=== PATIENT | male | born 1945 | race Caucasian/White ===

== ENCOUNTER → 2019-05-30 | Outpatient (CLI) | payer OTHER | END | disposition home or self-care (01) | LOC: CFH 08:08 | PROVIDERS: ATTEND Internal Medicine Cardiovascular Disease | DX: I25.10 Atherosclerotic heart disease of native coronary artery without angina pectoris (principal); I25.9 Chronic ischemic heart disease, unspecified | CPT/HCPCS: 78452; 93017; A9502 ==

== ENCOUNTER → 2019-08-04 | Outpatient (CLI) | payer OTHER ==
[~2019-08-04] MED LIST: ASPI-496 PO; ATOR80TA PO; CHOL40002 PO; GABA300C PO; LISI5TAB7 PO; METF500T17 PO; METO-264 PO; METO25TA35 PO; OMEG1CAP6 PO; VITA1TAB19 PO
== END | disposition home or self-care (01) ==
LOC: CFH 11:51
PROVIDERS: ATTEND Neurological Surgery
DX: M48.07 Spinal stenosis, lumbosacral region (principal); M43.16 Spondylolisthesis, lumbar region; M41.86 Other forms of scoliosis, lumbar region; M89.38 Hypertrophy of bone, other site
CPT/HCPCS: 72110; 72148

== ENCOUNTER 2019-11-21 23:25 | Emergency (ER) | payer MEDICARE, OTHER ==
[~2019-11-21] VITALS: Ht 188 cm; Wt 98.6 kg
--- NOTE | 2019-11-22 00:20 | NUR ---
BENAVIDEZ CATHETER PLACED, STANDARD BENAVIDEZ TIP ATTEMPTED, UNABLE TO ADVANCE. CAUDE TIP USED AND ADVANCED. APPX 1600ML URINE IN DRAIN BAG. PT REPORTS RELIEF FROM PAIN AT THIS TIME. URINE CONTINUES TO DRAIN INTO DRAINAGE BAG.
[2019-11-22 00:28] LABS: MICROSCOPIC AUTO
[2019-11-22 00:32] LABS: BASOPHILS # (AUTO) 0.02 x10^3/uL (0-0.1); BASOPHILS % (AUTO) 0 % (0-1); EOSINOPHILS # (AUTO) 0.19 x10^3/uL (0-0.4); EOSINOPHILS % (AUTO) 2 % (1-7); LYMPHOCYTES # (AUTO) 1.51 x10^3/uL (1-3.4); LYMPHOCYTES % (AUTO) 12 % (22-44); MD NO; MEAN CORPUSCULAR HEMOGLOBIN 30.3 pg (27.5-34.5); MEAN CORPUSCULAR HGB CONC 33.3 g/dL (33.2-36.2); MEAN PLATELET VOLUME 9.6 fL (7.4-10.4); MONOCYTES % (AUTO) 5 % (2-9); NEUTROPHILS # (AUTO) 9.88 x10^3/uL (1.8-6.8); NEUTROPHILS % (AUTO) 81 % (42-75); PLATELET COUNT 170 x10^3/uL (130-400); RED BLOOD COUNT 4.27 x10^6/uL (4.38-5.82); RED CELL DISTRIBUTION WIDTH 12.9 % (9.4-14.8)
[2019-11-22 00:41] LABS: ALBUMIN 3.8 g/dL (3.4-5.0); ANION GAP 9 mmol/L (5-15); CALCIUM 9.2 mg/dL (8.5-10.1); CHLORIDE 109 mmol/L (98-107); CREATININE 1.44 mg/dL (0.7-1.3)
[2019-11-22 02:10] VITALS: BP 122/65
== END 2019-11-22 02:13 | disposition home or self-care (01) ==
LOC: ED 11-22 00:48
DX: N40.1 Benign prostatic hyperplasia with lower urinary tract symptoms (principal); R33.8 Other retention of urine; R19.7 Diarrhea, unspecified; R10.9 Unspecified abdominal pain; R11.0 Nausea; I10 Essential (primary) hypertension; E11.9 Type 2 diabetes mellitus without complications
CPT/HCPCS: 36415; 51702; 80048; 81001; 82040; 85025; 99284

== ENCOUNTER 2019-11-30 11:25 | Outpatient (CLI) | payer OTHER | END 2019-11-30 23:59 | disposition home or self-care (01) | LOC: RAD 11:25 | PROVIDERS: ATTEND Family Medicine | DX: Z02.9 Encounter for administrative examinations, unspecified (principal) ==

== ENCOUNTER → 2020-01-05 | Outpatient (CLI) | payer OTHER ==
[~2020-01-05] MED LIST changes: +TAMS-11 PO
== END | disposition home or self-care (01) ==
LOC: STAR 13:22
PROVIDERS: ATTEND Urology
DX: Z01.818 Encounter for other preprocedural examination (principal); N40.1 Benign prostatic hyperplasia with lower urinary tract symptoms; I45.89 Other specified conduction disorders
CPT/HCPCS: 93005

== ENCOUNTER 2020-01-11 07:38 | Observation (INO) | payer OTHER ==
[~2020-01-11] VITALS: Ht 188 cm; Wt 98.9 kg
[2020-01-11] MEDS ORDERED: LACTATED RINGERS 1,000 ML IV SCH (08:15)
[2020-01-11 08:20] VITALS: BP 123/78
[2020-01-11] MEDS ORDERED: ACET-1600 PO (08:23)
[2020-01-11] MEDS ORDERED: CHLORHEXIDINE 15 ML UDC MM ONE (08:30)
[2020-01-11] MEDS ORDERED: FENTANYL PF 250 MCG/5ML ONE (09:17)
[2020-01-11] MEDS ORDERED: DEXAMETHASONE 4 MG/ML, 1ML ONE (09:33)
[2020-01-11] MEDS ORDERED: SUCCINYLCHOLINE 20 MG/ML, 10ML ONE (09:33)
[2020-01-11] MEDS ORDERED: CEFAZOLIN 1,000 MG ONE (09:33)
[2020-01-11] MEDS ORDERED: ONDANSETRON 2MG/ML, 2ML ONE (09:33)
[2020-01-11] MEDS ORDERED: PROPOFOL 10 MG/ML, 20ML ONE (09:33)
[2020-01-11] MEDS ORDERED: HYDROmorphone 2 MG/ML, 1ML IVPush PRN (10:00)
[2020-01-11] MEDS ORDERED: PROMETHAZINE 25 MG/ML, 1ML IV PRN (10:00)
[2020-01-11] MEDS ORDERED: MEPERIDINE/PF 25MG/0.5ML IVPush PRN (10:00)
[2020-01-11] MEDS ORDERED: KETOROLAC 30 MG/1 ML IV PRN (10:00)
[2020-01-11] MEDS ORDERED: OXYcodone 5 MG/5 ML ORAL.SOL UDC PO PRN (10:00)
[2020-01-11] MEDS ORDERED: ALBUTEROL SULFATE 2.5 MG/3 ML NPPB PRN (10:00)
[2020-01-11] MEDS ORDERED: ACETAMINOPHEN 325 MG TABLET PO PRN (10:00)
[2020-01-11] MEDS ORDERED: LABETALOL 5MG/ML, 20ML IV PRN (10:00)
[2020-01-11] MEDS ORDERED: hydrALAzine 20 MG/ML, 1ML IV PRN (10:00)
[2020-01-11] MEDS ORDERED: DIAZEPAM 5 MG/ML, 2ML IVPush PRN (10:00)
[2020-01-11] MEDS ORDERED: ONDANSETRON 2MG/ML, 2ML IV PRN (11:00)
[2020-01-11] MEDS ORDERED: FENTANYL PF 100 MCG/2ML ONE (11:20)
[2020-01-11] MEDS ORDERED: ACETAMINOPHEN 650 MG/20.3 ML UDC ONE (11:20)
[2020-01-11] MEDS ORDERED: OXYcodone 5 MG/5 ML ORAL.SOL UDC ONE (11:20)
[2020-01-11] MEDS: FENTANYL PF 100 MCG/2ML IV PRN ×2 (11:35→11:40)
[2020-01-11 16:58] VITALS: BP 137/86
[2020-01-11] MEDS ORDERED: ACETAMINOPHEN 500 MG TABLET PO PRN (18:00)
[2020-01-11 18:47] VITALS: BP 111/65
[2020-01-11] MEDS: GABAPENTIN 300 MG CAPSULE PO SCH (20:51)
[2020-01-11] MEDS: OXYcodone/APAP 5/325MG TABLET PO PRN (20:52)
[2020-01-11] MEDS ORDERED: METOPROLOL SUCCINATE 50 MG TAB.ER.24H PO SCH (21:00)
[2020-01-11] MEDS ORDERED: ATORVASTATIN 80 MG TABLET PO SCH (21:00)
[2020-01-12 00:19] VITALS: BP 107/65
[2020-01-12] MEDS: OXYcodone/APAP 5/325MG TABLET PO PRN (02:46)
[2020-01-12 03:42] VITALS: BP 106/58
[2020-01-12 07:33] VITALS: BP 96/58
[2020-01-12] MEDS: metFORMIN 500 MG TABLET PO SCH ×2 (07:42→16:23)
[2020-01-12] MEDS: GABAPENTIN 300 MG CAPSULE PO SCH ×2 (07:42→16:23)
[2020-01-12] MEDS ORDERED: MULTIVITS,STRESS FORMULA 1 TABLET PO SCH (09:00)
[2020-01-12] MEDS ORDERED: CHOLECALCIFEROL 1,000 UNIT TABLET PO SCH (09:00)
[2020-01-12] MEDS ORDERED: TAMSULOSIN 0.4 MG CAP.ER.24H PO SCH (09:00)
[2020-01-12] MEDS ORDERED: LISINOPRIL 5 MG TABLET PO SCH (09:00)
[2020-01-12] MEDS ORDERED: OMEGA-3/FISH OIL CAPSULE PO SCH (09:00)
[2020-01-12 13:45] VITALS: BP 112/66
== END 2020-01-12 17:03 | disposition home or self-care (01) ==
LOC: OUT 07:38 → ORIP 10:54 → 4NE 16:45 → DCLOUNGE 01-12 16:59
PROVIDERS: ADMIT Urology; ATTEND Urology
DX: Z03.818 Encounter for observation for suspected exposure to other biological agents ruled out (principal); N40.1 Benign prostatic hyperplasia with lower urinary tract symptoms; R33.8 Other retention of urine; I10 Essential (primary) hypertension; E78.5 Hyperlipidemia, unspecified; E11.9 Type 2 diabetes mellitus without complications; I25.10 Atherosclerotic heart disease of native coronary artery without angina pectoris; Z88.0 Allergy status to penicillin; Z90.79 Acquired absence of other genital organ(s); Z79.899 Other long term (current) drug therapy
CPT/HCPCS: 36415; 52601; 82962; 87635; 88305; G0378; J0330; J0690; J1100; J2405; J2704; J3010; J7120

== ENCOUNTER → 2020-05-01 | Outpatient (CLI) | payer OTHER ==
[~2020-05-01] MED LIST changes: +ACET-1600 PO
== END | disposition home or self-care (01) ==
LOC: CFH 15:51
PROVIDERS: ATTEND Orthopaedic Surgery
DX: S43.432A Superior glenoid labrum lesion of left shoulder, initial encounter (principal); M51.36 Other intervertebral disc degeneration, lumbar region; N40.0 Benign prostatic hyperplasia without lower urinary tract symptoms; X58.XXXA Exposure to other specified factors, initial encounter; Y93.89 Activity, other specified; Y92.89 Other specified places as the place of occurrence of the external cause; Y99.8 Other external cause status